=== PATIENT | female | born 1970 | race Hispanic/Latino ===

== ENCOUNTER 2018-01-26 10:54 | Emergency (ER) | payer OTHER, SELFPAY ==
[2018-01-26] MEDS ORDERED: Dexamethasone 4 mg/ml Vial ONE (11:27)
[2018-01-26] MEDS ORDERED: Metoclopramide HCl 10 MG/2 ML VIAL ONE (11:27)
[2018-01-26] MEDS ORDERED: Ketorolac Tromethamine 30 MG/ML VIAL ONE (11:27)
[2018-01-26] MEDS ORDERED: Fentanyl 100 MCG/2 ML VIAL ONE (11:27)
[2018-01-26 11:59] LABS: #Monocytes 0.4 thou/uL (0.11-0.59); #Neutrophils 5.9 thou/uL (1.40-6.50); %Basophils 0.3 % (0.0-1.0); %Eosinophils 0.6 % (0.0-10.0); %Lymphocytes 24.4 % (21.0-51.0); %Monocytes 4.6 % (0.0-10.0); %Neutrophils 70.1 % (42.0-75.0); Hemoglobin 14.9 g/dL (12.0-16.0); Mean Corpuscular HGB CONC 34.2 g/dL (32.0-36.0); Mean Corpuscular Hemoglobin 29.7 pg (27.0-31.0); Mean Corpuscular Volume 86.7 fl (81.0-99.0); Platelet Count 248 thou/uL (130-400); RBC Distribution Width 12.1 % (11.5-14.5); White Blood Cell (WBC) Count 8.4 thou/uL (4.8-10.8)
[2018-01-26 12:18] LABS: BHCG - Serum Negative (NEGATIVE); Pregs Control Background? CLEAR/WHITE (CLR/WHITE); Pregs Control Bar Appear? YES (CONTROL BAR)
[2018-01-26 12:22] LABS: ALT (SGPT) 33 U/L (8-55); AST (SGOT) 31 U/L (5-34); Albumin 4.1 g/dL (3.5-5.0); Alkaline Phosphatase 74 U/L (40-150); Anion Gap 12 mmol/L (10-20); BUN (Urea Nitrogen) 17 mg/dL (7.0-18.7); Bilirubin, Total 0.3 mg/dL (0.2-1.2); CK (CPK) 198 U/L (29-168); Calc. Creatinine Clearance 0 mL/min (70-130); Carbon Dioxide 25 mmol/L (22-29); Chloride 103 mmol/L (98-107); Estimated GFR-MDRD Greater than 90; Globulin 3.5 g/dL (2.4-3.5); Glucose 128 mg/dL (70-105); Potassium 4.1 mmol/L (3.5-5.1); Protein, Total 7.6 g/dL (6.0-8.3); Sodium 136 mmol/L (136-145)
[2018-01-26 12:27] LABS: CKMB 4.3 ng/mL (0-6.6); Troponin I Less than 0.010 ng/mL (< 0.028)
--- NOTE | 2018-01-26 12:51 | RAD ---
PORTABLE CHEST: HISTORY: Altered mental status. COMPARISON: None. FINDINGS: Heart size appears borderline enlarged. There is elevation of the right hemidiaphragm. The lungs ar e clear of infiltrates. IMPRESSION: Borderline heart size. POS: [facility]
--- NOTE | 2018-01-26 14:01 | CT ---
CT HEAD WITHOUT CONTRAST: TECHNIQUE: Multiple axial tomograms were obtained through the head without IV enhancement. INDICATION: Headache. FINDINGS: Ventricles have normal size and position. No evidence of intracranial mass or hemorrhage. No eviden ce of infarct. Sinuses and mastoids are well aerated. IMPRESSION: Unremarkable head CT. POS: [facility]
--- NOTE | 2018-02-13 15:43 | EKG ---
Test Reason : Blood Pressure : / mmHG Vent. Rate : 074 BPM Atrial Rate : 074 BPM P-R Int : 156 ms QRS Dur : 084 ms QT Int : 406 ms P-R-T Axes : 083 000 -26 degrees QTc Int : 450 ms Normal sinus rhythm Nonspecific T wave abnormality Abnormal ECG Confirmed by DANNY CHENEY, CARMITA ([id number]), book or script editor JONH HEARN ([id number]) on 02/13/2018 3:43:04 PM Referred By: Confirmed By:CARMITA DELGADO MD
== END 2018-01-26 14:04 | disposition home or self-care (01) ==
LOC: ERS 10:54
DX: R51 Headache (principal); E11.9 Type 2 diabetes mellitus without complications; I10 Essential (primary) hypertension
CPT/HCPCS: 36415; 70450; 71045; 80053; 82553; 83880; 84484; 84703; 85025; 93005; 94760; 96365; 96375; J1100; J1885; J2765; J3010